=== PATIENT | male | born 1985 | race Two or more races ===

== ENCOUNTER 2017-06-19 04:16 | Emergency (ER) | payer OTHER ==
[~2017-06-19] VITALS: Ht 177.8 cm; Wt 118.0 kg
[2017-06-19] MEDS ORDERED: HYDROCODONE/ACETAMINOPHEN 5/325MG TABLET PO ONE (06:45)
[2017-06-19] MEDS ORDERED: TRAMADOL 50MG TABLET PO ONE (08:00)
[2017-06-19 09:09] VITALS: BP 148/82
== END 2017-06-19 09:09 | disposition home or self-care (01) ==
LOC: ER 04:16
DX: S62.346A Nondisplaced fracture of base of fifth metacarpal bone, right hand, initial encounter for closed fracture (principal); S62.344A Nondisplaced fracture of base of fourth metacarpal bone, right hand, initial encounter for closed fracture; Z88.0 Allergy status to penicillin; W10.8XXA Fall (on) (from) other stairs and steps, initial encounter; Y93.89 Activity, other specified; Y92.018 Other place in single-family (private) house as the place of occurrence of the external cause
CPT/HCPCS: 29125; 73110; 73130; 99284